=== PATIENT | female | born 1990 | race Caucasian/White ===

== ENCOUNTER 2016-12-19 23:21 | Emergency (ER) | payer BC, OTHER ==
[2016-12-19 23:29] VITALS: BP 115/84; PULSE 86; TEMP 97.7; BMI 20.7
--- NOTE | 2016-12-19 23:35 | PDOC ---
History of Present Illness - General Chief Complaint: Pain, Acute Stated Complaint: ABDOMINAL PAIN Time Seen by Provider: 12/19/16 23:29 History Source: Patient Exam Limitations: No Limitations - History of Present Illness Initial Comments: 12/19/16 23:35 This is a 26-year-old female comes in complaining of approximately one week of progressive right lower quadrant pain. Patient is complaining of some fevers and chills times today only also anorexia. Patient also said that she has a new sexual partner 3 months and does not always use protection. Patient denies any history of sexually transmitted diseases in the past. Patient denies any nausea vomiting diarrhea. Patient said she was treated for urinary tract infection several weeks ago but has had no frequency dysuria or hematuria PAST MEDICAL HISTORY: no significant history PAST SURGICAL HISTORY: no significant history FAMILY HISTORY: no pertinant history SOCIAL HISTORY: Pt lives with family and is employed. MEDICATIONS: reviewed ALLERGIES: As per nursing notes Review of Systems General: No fevers or chills, no weakness, no weight loss HEENT: No change in vision. No sore throat,. No ear pain CardioVascular: No chest pain or shortness of breath Respiratory:No cough, or wheezing. Gastrointestinal: no nausea, vomitting, diarrhea or constipation, No rectal bleeding + abdominal pain Genitourinary: No dysuria, hematuria, or frequency, plus vaginal discharge discharge Musculoskeletal: No joint or muscle pain or swelling Neurologic: No headache, vertigo, dizziness or loss of consciousness Psychiatric: nor depression Skin: No rashes or easy bruising Endocrine: no increased thirst or abnormal weight change Allergic: no skin or latex allergy All other systems reviewed and normal Exam: General: Well-nourished well-developed individual, no acute distress HEENT: Throat: Normal, tonsils normal, no erythema or exudate Neck: Supple, no meningeal signs, no lymphadenopathy Eyes::Pupils equal reactive and round, extraocular motion intact Chest: Nontender to palpation Cardiac: S1-S2 normal, regular rate and rhythm, no murmurs rubs or gallops Respiratory: Lungs clear to auscultation bilateral Abdomen: Soft, nondistended, normal bowel sounds, moderately tender to palpation right lower quadrant no guarding or rebound Pelvic exam: There is no purulent discharge or odor. Cervix is normal in appearance. There is some mild cervical motion tenderness and right adnexal tenderness. However there is also tenderness superior to the right adnexa and McBurney's point. Extremities: Warm, dry, no cyanosis, clubbing, or edema Skin: No rashes Neuro: Alert and oriented x3, nonfocal exam, grossly intact, normal gait Psych: Normal mood and affect 12/20/16 01:06 CT scan shows a normal appendix, no stones, small amount of free fluid that could be secondary to a ruptured ovarian cyst. Assessment and plan: This is a 26-year-old female with approximately one week of progressive right lower quadrant abdominal pain. Patient had a CT that was negative for any acute pathology with the exception of a probable ruptured ovarian cyst. Specifically the appendix was normal Pelvic exam did exhibit some cervical motion tenderness and right adnexal tenderness but otherwise normal. However patient is being treated for STDs as she did have cervical motion tenderness. Is unclear whether or not the adnexal and cervical motion tenderness secondary to the probable ruptured ovarian cyst or an STD. Talk to patient's partner as well and told him he will need to be treated once she gets the cultures back if they are positive for a sexually transmitted disease. Instructed that they are not to have any unprotected sex until the cultures are back. Patient will follow-up with her OB as well. Patient told to take ibuprofen or Aleve for her pain. Past History - Past Medical History Allergies/Adverse Reactions: Allergies Allergy/AdvReac Type Severity Reaction Status Date / Time No Known Allergies Allergy Verified 10/18/16 11:50 Home Medications: Ambulatory Orders NK [No Known Home Medication] 12/19/16 - Immunization History Immunization Up to Date: Yes - Psycho/Social/Smoking Cessation Hx Anxiety: No Suicidal Ideation: No Smoking History: Never smoked Have you smoked in the past 12 months: No Hx Alcohol Use: No Drug/Substance Use Hx: No Substance Use Type: None *Physical Exam - Vital Signs Last Vital Signs Temp Pulse Resp BP Pulse Ox 97.7 F 86 18 115/84 98 12/19/16 23:26 12/19/16 23:26 12/19/16 23:26 12/19/16 23:26 12/19/16 23:26 ED Treatment Course - LABORATORY CBC & Chemistry Diagram: 12/20/16 00:06 12/20/16 00:06 *DC/Admit/Observation/Transfer Diagnosis at time of Disposition: Pelvic pain, Ruptured ovarian cyst - Discharge Dispostion Disposition: HOME Condition at time of disposition: Stable - Patient Instructions Printed Discharge Instructions: DI for Pelvic Pain Additional Instructions: If you're cultures come back positive for either Chlamydia or gonorrhea or your partner will need to be treated as well. For the pain take ibuprofen 2 or 3 tablets 3 times a day with food don't take on an empty stomach. Follow-up with your OB doctor. Return to the emergency department immediately with ANY new, persistent or worsening symptoms. Continue any medications as previously prescribed by your physician. You should follow up with your primary doctor as soon as possible regarding today's emergency department visit. . Please make sure your doctor reviews the results of your emergency evaluation. Thank you for coming to the Emergency Department today for your care. It was a pleasure to see you today. Please note that your evaluation is INCOMPLETE until you follow-up with your doctor.
[2016-12-19 23:42] LABS: URINE APPEARANCE Clear; URINE BILIRUBIN Negative (NEGATIVE); URINE BLOOD Negative (NEGATIVE); URINE COLOR YELLOW; URINE GLUCOSE (UA) Negative (NEGATIVE); URINE KETONE Negative (NEGATIVE); URINE LEUK ESTERASE Negative (NEGATIVE); URINE NITRITE Negative (NEGATIVE); URINE PROTEIN Negative (NEGATIVE); URINE UROBILINOGEN 0.2 E.U/dl (0.2-1.0)
[2016-12-19] MEDS ORDERED: SODIUM CHLORIDE 1,000 ML IV ONE (23:53)
[2016-12-19] MEDS ORDERED: morphine CARPU-JECT 4 MG/1 ML DISP.SYRIN IVPUSH ONE (23:54)
[2016-12-19] MEDS ORDERED: morphine CARPU-JECT 10 MG/1 ML DISP.SYRIN ONE (23:55)
[2016-12-19] MEDS ORDERED: ONDANSETRON 4 MG/2 ML VIAL IVPUSH ONE (23:58)
[2016-12-19] MEDS ORDERED: ONDANSETRON 4 MG/2 ML VIAL ONE (23:58)
[2016-12-20 00:53] LABS: BASOPHIL 1.1 % (0-2.0); EOSINOPHIL 1.3 % (0-4.5); MCH 31.8 pg (25.7-33.7); MEAN CELL VOLUME 93.6 fl (80-96); MEAN PLT VOLUME 9.2 fl (7.5-11.1); NEUTROPHILS 56.5 % (42.8-82.8); PLATELET COUNT 199 K/MM3 (134-434); RDW 12.1 % (11.6-15.6); WHITE BLOOD COUNT 5.6 K/mm3 (4.0-10.0)
[2016-12-20] MEDS ORDERED: AZITHROMYCIN 250 MG TABLET (FP) PO ONE (01:06)
[2016-12-20 01:08] LABS: ALBUMIN 4.3 g/dl (3.4-5.0); ALK PHOS 42 U/L (45-117); ANION GAP 10 (8-16); BILIRUBIN,TOTAL 0.4 mg/dL (0.2-1.0); CALCIUM 9.4 mg/dL (8.5-10.1); CO2 27 mmol/L (21-32); CREATININE 0.8 mg/dL (0.55-1.02); GLUCOSE,RANDOM 89 mg/dL (74-106); SGOT/AST 16 U/L (15-37); SGPT/ALT 15 U/L (12-78); TOT PROT 7.1 g/dl (6.4-8.2)
[2016-12-20] MEDS ORDERED: AZITHROMYCIN 250 MG TABLET (FP) ONE (01:08)
[2016-12-20] MEDS ORDERED: IBUPROFEN 600 MG TABLET (FP) PO ONE ×2 (01:32→01:33)
== END 2016-12-20 01:34 | disposition home or self-care (01) ==
LOC: FER 23:21
PROC: 3E033NZ Introduction of Analgesics, Hypnotics, Sedatives into Peripheral Vein, Percutaneous Approach (ICD-10-PCS; principal; 2016-12-19)
PROC: 3E033GC Introduction of Other Therapeutic Substance into Peripheral Vein, Percutaneous Approach (ICD-10-PCS; 2016-12-19)
PROC: 3E0337Z Introduction of Electrolytic and Water Balance Substance into Peripheral Vein, Percutaneous Approach (ICD-10-PCS; 2016-12-19)
DX: N83.209 Unspecified ovarian cyst, unspecified side (principal); R10.2 Pelvic and perineal pain
CPT/HCPCS: 36415; 74150-TC; 80053; 81003; 84703; 85025; 87491; 87591; 99283-25

== ENCOUNTER 2016-12-30 13:57 | Emergency (ER) | payer BC, OTHER ==
[2016-12-30 14:03] VITALS: BP 138/94; PULSE 93; TEMP 97.9; BMI 21.2
--- NOTE | 2016-12-30 14:11 | PDOC ---
History of Present Illness - General History Source: Patient Exam Limitations: No Limitations - History of Present Illness Initial Comments: 12/30/16 14:43 The patient is a 26 year old female, with no significant past medical history who presents to the emergency department with a pruritic rash to her neck, chest and arm area. The patient reports getting out of the shower today and noticing a rash that started on her neck, which has spread to her arm and chest area. She denies eating any strange/new foods. She denies any new soaps and denies any food allergies. The patient reports back in October going into anaphylaxis after a welt (thought to be a bug bite) appeared on her neck. She denies any similar symptoms since. She denies any complaints of pain. LMP was at the beginning of this December. She denies recent fevers, chills, headache or dizziness. Allergies: NKDA Past surgical history: Denies Social history: Nonsmoker. Occasional EtOH use. Denies drug use. <Sriram Gee - Last Filed: 12/30/16 14:43> <Augusta Sandoval - Last Filed: 12/30/16 15:43> - General Chief Complaint: Allergic Reaction Stated Complaint: ALLERGIC REACTION Time Seen by Provider: 12/30/16 14:00 Past History <Sriram Gee - Last Filed: 12/30/16 14:43> - Past Medical History Other medical history: DENIES - Immunization History Immunization Up to Date: Yes - Psycho/Social/Smoking Cessation Hx Anxiety: No Suicidal Ideation: No Smoking History: Never smoked Have you smoked in the past 12 months: No Hx Alcohol Use: Yes Drug/Substance Use Hx: No Substance Use Type: Alcohol <Augusta Sandoval - Last Filed: 12/30/16 15:43> - Past Medical History Allergies/Adverse Reactions: Allergies Allergy/AdvReac Type Severity Reaction Status Date / Time No Known Allergies Allergy Verified 12/30/16 13:57 Home Medications: Ambulatory Orders Prednisone [Deltasone -] 40 mg PO DAILY #6 tablet 12/30/16 Review of Systems - Review of Systems Able to Perform ROS?: Yes Comments:: 12/30/16 14:43 GENERAL/CONSTITUTIONAL: No fever or chills. No weakness. HEAD, EYES, EARS, NOSE AND THROAT: No change in vision. No ear pain or discharge. No sore throat. CARDIOVASCULAR: No chest pain or shortness of breath. RESPIRATORY: No cough, wheezing, or hemoptysis. GASTROINTESTINAL: No nausea, vomiting, diarrhea or constipation. GENITOURINARY: No dysuria, frequency, or change in urination. MUSCULOSKELETAL: No joint or muscle swelling or pain. No neck or back pain. SKIN: + rash NEUROLOGIC: No headache, vertigo, loss of consciousness, or change in strength/ sensation. ENDOCRINE: No increased thirst. No abnormal weight change. HEMATOLOGIC/LYMPHATIC: No anemia, easy bleeding, or history of blood clots. ALLERGIC/IMMUNOLOGIC: No hives or skin allergy. <Sriram Gee - Last Filed: 12/30/16 14:43> *Physical Exam - Vital Signs Last Vital Signs Temp Pulse Resp BP Pulse Ox 97.9 F 93 H 18 138/94 100 12/30/16 13:57 12/30/16 13:57 12/30/16 13:57 12/30/16 13:57 12/30/16 13:57 - Physical Exam Comments: 12/30/16 14:43 GENERAL: Awake, alert, and fully oriented, in no acute distress HEAD: No signs of trauma EYES: PERRLA, EOMI, sclera anicteric, conjunctiva clear ENT: Auricles normal inspection, hearing grossly normal, nares patent, oropharynx clear without exudates. Moist mucosa NECK: Normal ROM, supple, no lymphadenopathy, JVD, or masses LUNGS: Breath sounds equal, clear to auscultation bilaterally. No wheezes, and no crackles HEART: Regular rate and rhythm, normal S1 and S2, no murmurs, rubs or gallops ABDOMEN: Soft, nontender, normoactive bowel sounds. No guarding, no rebound. No masses EXTREMITIES: Normal range of motion, no edema. No clubbing or cyanosis. No cords, erythema, or tenderness NEUROLOGICAL: Cranial nerves II through XII grossly intact. Normal speech, normal gait SKIN: Warm, Dry, normal turgor, urticaria rash to the upper chest and neck and bilateral hands, <Sriram Gee - Last Filed: 12/30/16 14:43> - Vital Signs Last Vital Signs Temp Pulse Resp BP Pulse Ox 97.9 F 93 H 18 138/94 100 12/30/16 13:57 12/30/16 13:57 12/30/16 13:57 12/30/16 13:57 12/30/16 13:57 <Augusta Sandoval - Last Filed: 12/30/16 15:43> ED Treatment Course - Medications Given in the ED: ED Medications Discontinued Medications Generic Name Dose Route Start Last Admin Trade Name Trudi PRN Reason Stop Dose Admin Diphenhydramine HCl 25 mg 12/30/16 14:15 12/30/16 14:26 Benadryl Injection - IVPB 12/30/16 14:16 25 mg ONCE ONE Administration Methylprednisolone Sodium Succinate 125 mg 12/30/16 14:15 12/30/16 14:26 Solu-Medrol - IVPB 12/30/16 14:16 125 mg ONCE ONE Administration <Sriram Gee - Last Filed: 12/30/16 14:43> Medical Decision Making - Medical Decision Making 12/30/16 14:57 Pt reassessed. Rash improved, itching has improved. Will continue to monitor. <Augusta Sandoval - Last Filed: 12/30/16 15:43> *DC/Admit/Observation/Transfer - Attestations Scribe Attestion: 12/30/16 14:44 Documentation prepared by Sriram Gee, acting as medical front desk specialist for Augusta Sandoval MD. <Sriram Gee - Last Filed: 12/30/16 14:43> - Discharge Dispostion Admit: No <Augusta Sandoval - Last Filed: 12/30/16 15:43> Diagnosis at time of Disposition: Urticaria - Discharge Dispostion Disposition: HOME Condition at time of disposition: Improved - Prescriptions Prescriptions: Prednisone [Deltasone -] 40 mg PO DAILY #6 tablet - Patient Instructions Printed Discharge Instructions: DI for Hives
[2016-12-30] MEDS ORDERED: methylPREDNISolone NA SUCC 125 MG/2 ML VIAL IVPB ONE (14:15)
[2016-12-30] MEDS ORDERED: FAMOTIDINE 20 MG/50 ML IVPB 50 ML IVPB ONE ×2 (14:15→14:18)
[2016-12-30] MEDS ORDERED: methylPREDNISolone NA SUCC 125 MG/2 ML VIAL ONE (14:18)
== END 2016-12-30 16:08 | disposition home or self-care (01) ==
LOC: FER 13:57
PROC: 3E033GC Introduction of Other Therapeutic Substance into Peripheral Vein, Percutaneous Approach (ICD-10-PCS; principal; 2016-12-30)
DX: L50.9 Urticaria, unspecified (principal)
CPT/HCPCS: 99283-25